=== PATIENT | female | born 1950 | race Hispanic/Latino ===

== ENCOUNTER → 2022-06-03 | Outpatient (CLI) | payer OTHER ==
[2022-06-03 13:02] LABS: CHOLESTEROL 172 mg/dL (<200); HDL CHOLESTEROL 57 mg/dL (35-85); LDL DIRECT 96 mg/dL (0-99); TRIGLYCERIDES 75 mg/dL (30-200)
== END | disposition home or self-care (01) ==
LOC: LAB 11:37
PROVIDERS: ATTEND Internal Medicine Cardiovascular Disease
DX: E78.5 Hyperlipidemia, unspecified (principal)
CPT/HCPCS: 36415; 80061

== ENCOUNTER → 2023-01-25 | Outpatient (CLI) | payer OTHER ==
[2023-01-25 13:00] LABS: CHOLESTEROL 181 mg/dL (<200); HDL CHOLESTEROL 63 mg/dL (35-85); LDL DIRECT 108 mg/dL (0-99); TRIGLYCERIDES 63 mg/dL (30-200)
== END | disposition home or self-care (01) ==
LOC: LAB 09:41
PROVIDERS: ATTEND Internal Medicine Cardiovascular Disease
DX: E78.5 Hyperlipidemia, unspecified (principal)
CPT/HCPCS: 36415; 80061

== ENCOUNTER → 2023-11-16 | Outpatient (CLI) | payer MEDICARE ==
[2023-11-16 12:33] LABS: CHOLESTEROL 186 mg/dL (<200); HDL CHOLESTEROL 69 mg/dL (35-85); LDL DIRECT 108 mg/dL (0-99); TRIGLYCERIDES 63 mg/dL (30-200)
== END | disposition home or self-care (01) ==
LOC: LAB 10:12
PROVIDERS: ATTEND Internal Medicine Cardiovascular Disease
DX: E78.5 Hyperlipidemia, unspecified (principal)
CPT/HCPCS: 36415; 80061

== ENCOUNTER → 2024-07-20 | Outpatient (CLI) | payer MEDICARE | END | disposition home or self-care (01) | LOC: SHCH 12:16 | PROVIDERS: ATTEND Internal Medicine Cardiovascular Disease | DX: I87.2 Venous insufficiency (chronic) (peripheral) (principal) | CPT/HCPCS: 93970 ==